=== PATIENT | female | born 1945 | race Caucasian/White ===

== ENCOUNTER 2018-04-06 00:18 | Inpatient (IN) ==
[2018-04-06] MEDS ORDERED: ONDANSETRON HCL/PF 2 MG/ML VIAL ONE (00:20)
[2018-04-06] MEDS ORDERED: ONDANSETRON HCL/PF 2 MG/ML VIAL IV ONE (00:31)
[2018-04-06 00:54] LABS: Hematocrit 35.9 % (37.0-47.0); Hemoglobin 11.2 gm/dL (12.5-16.0); Mean Cell Volume 82.3 fl (78-100); Mean Corpuscular Hemoglobin 25.7 pg (27-31); Mean Corpuscular Hgb Conc 31.2 g/dl (32-36); Mean Platelet Volume 10.4 fl (6.0-9.5); Neutrophil # 7.8 K/mm3 (1.3-6.0); Neutrophil % 83.3 % (42-75.0); Platelet Count 188 K/mm3 (150-450); Red Blood Count 4.36 M/mm3 (4.2-5.4); Red Cell Distribution Width 15.4 % (11.5-14.0); White Blood Count 9.3 K/mm3 (4.0-10.5)
--- NOTE | 2018-04-06 01:01 | ERNOTE ---
Abdominal HPI - General Chief Complaint: Abdominal Pain Time Seen by Provider: 04/06/18 00:51 Source: patient Exam Limitations: no limitations - Immun/Allergies/Home Medications Immunizatons: IMMUNIZATION HX Immunizations Up to Date Yes History of Influenza Vaccine Yes Hx Pneumococcal Vaccination No Allergies/Adverse Reactions: Allergies cephalexin [From Keflex] Allergy (Verified 04/06/18 01:24) shellfish derived Allergy (Verified 04/06/18 01:24) shrimp Allergy (Verified 04/06/18 01:24) Home Medications: HOME MEDICATIONS Metoprolol Succinate [Toprol Xl] 100 mg PO DAILY 04/06/18 [Last Taken Unknown] metFORMIN HCL [Glucophage] 1,000 mg PO BIDWM 04/06/18 [Last Taken Unknown] - History of Present Illness Narrative: Pt had onset of lower abdominal pain approx 90 min [employer]. Pt had nausea when the pain was at it's worst. Pain is constant and severe. Timing: constant Quality: moderate, severe, dullness, sharpness - at times Activities at Onset: sleep Modifying Factors - (Improves): Present: analgesics Prior Abdominal Problems: Present: similar symptoms - intermittently that have been more mild. Prior Treatment: Present: recently seen, treated by physician Review of Systems - Review of Systems Constitutional: Absent: recent illness, fever, chills EYE: Present: no symptoms reported ENT: Present: no symptoms reported Respiratory: Absent: shortness of breath, cough Cardiology: Absent: chest pain, palpitations Gastrointestinal/Abdominal: Present: See HPI, nausea, diarrhea - intermittent , abdominal pain Genitourinary: Absent: frequency, dysuria Musculoskeletal: Absent: back pain, muscle pain Neurological: Absent: headache, dizziness/light-headedness Endocrine: Absent: excessive sweating, flushing - Patient's Past Medical History Patient History - Medical: Diabetes Type 2 Patient History - Cardiac/Respiratory: CVA/Stroke, Hypertension Patient History - Cancer: No Hx of Cancer Patient History - Surgical Procedures: Cholecystectomy Patient History - Other: None - Social History Living Situations: home Smoking Status: Former smoker Alcohol Use: none Drug Use: none - Immunizations Immunizations Up to Date: Yes Hx Pneumococcal Vaccination: No History of Influenza Vaccine: Yes Physical Exam - Physical Exam General Appearance: Present: wd/wn, alert, no apparent distress Head Exam: Present: normal inspection, no evidence of injury Neck: Present: normal inspection, nontender Respiratory: Present: no respiratory distress, normal breath sounds, no accessory muscle use, lungs clear Cardiovascular/Chest: Present: regular rate, rhythm, no murmur, normal peripheral pulses Gastrointestinal/Abdominal: Present: tenderness - LLQ, RLQ, RUQ, abnormal bowel sounds - hypoactive, rebound - questionable. Back Exam: Present: normal inspection, normal range of motion Extremity Exam: Present: non-tender, no edema Neurological Exam: Present: alert, oriented, normal mood/affect, no motor/ sensory deficits Skin Exam: Present: normal color, warm/dry Lymphatic Exam: Present: no adenopathy ED Progress - Results and Orders Patient's Lab Results:: I have reviewed the patient's lab results. Results and Orders: Laboratory Tests 04/06/18 04/06/18 00:50 00:50 WBC 9.3 Hgb 11.2 L Hct 35.9 L Plt Count 188 Neutrophils % 83.3 H Sodium 137 Potassium 3.9 Chloride 103 Carbon Dioxide 25.5 Anion Gap 12.4 BUN 15 Creatinine 0.94 Random Glucose 182 H Calcium 8.9 Total Bilirubin 0.3 AST 12 ALT 12 L Alkaline Phosphatase 80 Total Protein 6.6 Albumin 3.1 L Amylase 55 Lipase 181 - Vital Signs Patient's Vital Signs:: I have reviewed the patient's vital signs. Vital Signs: Vital Signs 04/06/18 04/06/18 00:24 00:29 Temperature 37.2 C Pulse Rate 69 68 Respiratory 20 18 Rate Blood Pressure 206/106 180/76 O2 Sat by Pulse 93 93 Oximetry - EKG EKG: NSR, no ST T wave changes, other - Old [place]. EKG read: Interp. by me EKG Comments: chronic changes unchanged from 10/25/14 - X-Ray X-Ray #1 X-Ray: abdomen Interpretation: Interp. by me X-ray Comments: mild stool retention, no dilated loops of bowel. no mass or obstruction. - CT/Ultrasound CT/Ultrasound Narrative: CT abd pelvis with contrast: Small bowel obstruction mid small bowel with small perforation. Thickening in the bowel wall within the same region. No mass. - Progress/Reassessment Chief Complaint: Abdominal Pain Progress:: Improved Progress Note-Subjective: 04/06/18 01:50 Pt asked for additional pain medication as the pain was increasing again 04/06/18 02:30 Pain improved but pt's blood pressure did drop after Morphine administration. BP came back up with positioning and the beginning of a fluid bolus 04/06/18 05:[address] Ramos Carreon from [facility] about the CT scan. He reports a small bowel obstruction in the mid small bowel with a small perforation and thickening that suggests neoplastic origin such as lymphoma. Spoke with the patient and her about the findings and that this may lead to other testing and/or surgery and certainly admission for SBO at this time. Pt agrees with that plan. Spoke with Dr. De Leon and he will come and see the patient. 04/06/18 07:25 Dr. De Leon arrived around 06:05 and has made the decision to take patient directly to surgery. Orders for admit written. Departure Clinical Impression: Partial small bowel obstruction, Small bowel perforation - Departure Disposition: Still a patient Condition: Stable
[2018-04-06 01:09] LABS: Albumin * 3.1 gm/dl (3.4-5.0); Anion Gap 12.4 mmol/L (6.8-13.8); Bilirubin, Total 0.3 mg/dL (0.0-1.1); Ca. Corrected For Albumin 9.3 mg/dL (8.4-10.2); Calcium * 8.9 mg/dL (7.9-10.9); Carbon Dioxide 25.5 mmol/L (24-32.6); Potassium 3.9 mmol/L (3.4-4.6); Total Protein 6.6 gm/dL (6.2-8.2)
[2018-04-06] MEDS ORDERED: DIATRIZOATE MEGLUMINE, SODIUM 30 ML BTL PO ONE (01:44)
[2018-04-06] MEDS ORDERED: DIATRIZOATE MEGLUMINE, SODIUM 30 ML BTL ONE (01:45)
[2018-04-06] MEDS ORDERED: MORPHINE SULFATE 2 MG/ML DISP.SYRIN IV ONE (01:46)
[2018-04-06] MEDS ORDERED: MORPHINE SULFATE 2 MG/ML DISP.SYRIN ONE (01:49)
[2018-04-06] MEDS ORDERED: NORMAL SALINE 1,000 ML in NORMAL SALINE 1,000 ML IV ONE (02:03)
[2018-04-06 04:08] LABS: Urine Bilirubin Negative (NEGATIVE); Urine Blood Negative /ul (NEGATIVE); Urine Ketone Negative (NEGATIVE); Urine Nitrite Negative (NEGATIVE); Urine Protein Negative (NEGATIVE); Urine Urobilinogen Normal (NORMAL)
[2018-04-06 04:24] LABS: Urine Appearance Slightly Cloudy (CLEAR); Urine Bacteria 1+; Urine Color Yellow; Urine RBC None Seen /hpf (0-5); Urine WBC 0-5 /hpf (0-5)
[2018-04-06] MEDS ORDERED: LEVOFLOXACIN IN DEXTROSE 5 % 750 MG/150 ML BAG IV ONE (07:19)
--- NOTE | 2018-04-06 07:20 | HP ---
Chief Complaint - Chief Complaint Date of Service: 04/06/18 Time of Service: 07:07 Chief Complaint: abdominal pain History of Present Illness: Sudden onset severe abdominal pain just before bed. Intensified and she presented to ER. CT shows abnormal small intestine with possible perforation. - Patient's Past Medical History Patient History - Medical: Diabetes Type 2 Patient History - Cardiac/Respiratory: CVA/Stroke, Hypertension Patient History - Cancer: No Hx of Cancer Patient History - Surgical Procedures: Cholecystectomy Patient History - Other: None - Family History Family History:: no untoward family reactions to anesthesia, no familial bleeding tendencies - Social History Living Situations: home Smoking Status: Former smoker Alcohol Use: none Drug Use: none - Immunizations Immunizations Up to Date: Yes Hx Pneumococcal Vaccination: No History of Influenza Vaccine: Yes Review Of Systems (GEN) - Review of Systems Generalized/Overall Review: Absent: Chills, Fever EENTM: Present: No Symptoms Reported Respiratory: Present: No Symptoms Reported Cardiac: Present: No Symptoms Reported Abdominal: Present: Other - Pain continues. Diarrhea from contrast Genitourinary: Present: Nocturia - nocturia x 1. Absent: Burning, Frequency Neurological: Present: No Symptoms Reported, Other - No recent neurologic sx's-- --old CVA stable Skin: Present: Dryness Endocrine: Present: No Symptoms Reported Immunizations: IMMUNIZATION HX Immunizations Up to Date Yes History of Influenza Vaccine Yes Hx Pneumococcal Vaccination No Allergies/Adverse Reactions: Allergies Allergy/AdvReac Type Severity Reaction Status Date / Time cephalexin [From Keflex] Allergy Verified 04/06/18 01:24 shellfish derived Allergy Verified 04/06/18 01:24 shrimp Allergy Verified 04/06/18 01:24 Home Medications: HOME MEDICATIONS Metoprolol Succinate [Toprol Xl] 100 mg PO DAILY 04/06/18 [Last Taken Unknown] metFORMIN HCL [Glucophage] 1,000 mg PO BIDWM 04/06/18 [Last Taken Unknown] Exam - Exam Vital Signs: Vital Signs - Last Taken Temp 37.1 C 04/06/18 06:30 Pulse 84 04/06/18 06:30 Resp 20 04/06/18 06:30 BP 138/64 04/06/18 06:30 Pulse Ox 96 04/06/18 06:30 Constitutional: Present: Alert, Oriented x3, Cooperative, Well developed, Well nourished, Mild distress ENT Exam: Present: normal ENT inspection, hearing grossly normal Eye Exam: bilateral eye: normal inspection Neck: Present: supple, normal inspection Breasts: Present: Exam deferred Respiratory: Present: lungs clear, normal breath sounds, no respiratory distress Cardiovascular/Chest: Present: normal peripheral pulses, regular rate, rhythm Abdomen: Present: other - tympanitic, no percussion tenderness or guarding, diffusely tender /Rectal: Present: Exam deferred Extremity: Present: normal range of motion, normal inspection, no pedal edema, no calf tenderness Skin Exam: Present: skin rash Lymphatic: Present: no adenopathy Neurologic: Present: gm video II-XII nml as tested, normal cerebellar test, no motor/ sensory deficits Appearance: Present: appropriate appearance, appropriate insight, neat Eye contact: Present: cooperative, good eye contact, normal speech Thoughts: Present: normal thought pattern Diagnostic Studies: Abnormal Lab Results 04/06/18 04/06/18 04/06/18 Range/Units 00:50 00:50 04:00 Hgb 11.2 L (12.5-16.0) gm/dL Hct 35.9 L (37.0-47.0) % MCH 25.7 L (27-31) pg MCHC 31.2 L (32-36) g/dl RDW 15.4 H (11.5-14.0) % MPV 10.4 H (6.0-9.5) fl Immature Gran % (Auto) 0.70 H (0.001-0.429) % Immature Gran # (Auto) 0.07 H (0.000-0.0310) K/mm3 Neutrophils % 83.3 H (42-75.0) % Lymphocytes % 9.4 L (20-51) % Neutrophils # 7.8 H (1.3-6.0) K/mm3 Lymphocytes # 0.88 L (1.5-3.5) k/mm3 Random Glucose 182 H (70-110) mg/dL ALT 12 L (19-67) U/L Albumin 3.1 L (3.4-5.0) gm/dl Ur Leukocyte Esterase 75 H (NEGATIVE) /ul Urine Bacteria 1+ H (NONE) Laboratory Results WBC 9.3 K/mm3 (4.0-10.5) 04/06/18 00:50 RBC 4.36 M/mm3 (4.2-5.4) 04/06/18 00:50 Hgb 11.2 gm/dL (12.5-16.0) L 04/06/18 00:50 Hct 35.9 % (37.0-47.0) L 04/06/18 00:50 MCV 82.3 fl (78-100) 04/06/18 00:50 MCH 25.7 pg (27-31) L 04/06/18 00:50 MCHC 31.2 g/dl (32-36) L 04/06/18 00:50 RDW 15.4 % (11.5-14.0) H 04/06/18 00:50 Plt Count 188 K/mm3 (150-450) 04/06/18 00:50 MPV 10.4 fl (6.0-9.5) H 04/06/18 00:50 Immature Gran % (Auto) 0.70 % (0.001-0.429) H 04/06/18 00:50 Immature Gran # (Auto) 0.07 K/mm3 (0.000-0.0310) H 04/06/18 00:50 Neutrophils % 83.3 % (42-75.0) H 04/06/18 00:50 Lymphocytes % 9.4 % (20-51) L 04/06/18 00:50 Monocytes % 4.6 % (0.0-9) 04/06/18 00:50 Eosinophils % 1.8 % (0.0-3.0) 04/06/18 00:50 Basophils % 0.2 % (0.0-1.0) 04/06/18 00:50 Nucleated RBC % 0.0 k/mm3 (0-1) 04/06/18 00:50 Neutrophils # 7.8 K/mm3 (1.3-6.0) H 04/06/18 00:50 Lymphocytes # 0.88 k/mm3 (1.5-3.5) L 04/06/18 00:50 Monocytes # 0.4 k/mm3 (0.0-1.0) 04/06/18 00:50 Eosinophils # 0.2 k/mm3 (0.0-0.7) 04/06/18 00:50 Absolute Basophils 0.0 k/mm3 (0.0-0.1) 04/06/18 00:50 Sodium 137 mmol/L (132-142) 04/06/18 00:50 Plasma Sodium 138 mmol/L (130-142) 04/06/18 00:50 Potassium 3.9 mmol/L (3.4-4.6) 04/06/18 00:50 Chloride 103 mmol/L (97-106) 04/06/18 00:50 Carbon Dioxide 25.5 mmol/L (24-32.6) 04/06/18 00:50 Anion Gap 12.4 mmol/L (6.8-13.8) 04/06/18 00:50 BUN 15 mg/dL (3-23) 04/06/18 00:50 Creatinine 0.94 mg/dL (0.4-1.4) 04/06/18 00:50 Est GFR (Non-Af Amer) 62 mL/min (60-130) 04/06/18 00:50 BUN/Creatinine Ratio 16.0 (9.0-21.6) 04/06/18 00:50 Random Glucose 182 mg/dL (70-110) H 04/06/18 00:50 Calcium 8.9 mg/dL (7.9-10.9) 04/06/18 00:50 Calcium Adj for Albumin 9.3 mg/dL (8.4-10.2) 04/06/18 00:50 Total Bilirubin 0.3 mg/dL (0.0-1.1) 04/06/18 00:50 AST 12 U/L (0-48) 04/06/18 00:50 ALT 12 U/L (19-67) L 04/06/18 00:50 Alkaline Phosphatase 80 U/L (50-170) 04/06/18 00:50 Total Protein 6.6 gm/dL (6.2-8.2) 04/06/18 00:50 Albumin 3.1 gm/dl (3.4-5.0) L 04/06/18 00:50 Amylase 55 U/L (25-115) 04/06/18 00:50 Lipase 181 U/L (73-393) 04/06/18 00:50 Urine Color Yellow 04/06/18 04:00 Urine Appearance Slightly cloudy (CLEAR) 04/06/18 04:00 Urine pH 6.0 pH (5.0-7.0) 04/06/18 04:00 Ur Specific Amorita 1.010 SP.GR. (1.005-1.010) 04/06/18 04:00 Urine Protein Negative mg/dL (NEGATIVE) 04/06/18 04:00 Urine Glucose (UA) Negative mg/dL (NEGATIVE) 04/06/18 04:00 Urine Ketones Negative mg/dL (NEGATIVE) 04/06/18 04:00 Urine Blood Negative /ul (NEGATIVE) 04/06/18 04:00 Urine Nitrate Negative (NEGATIVE) 04/06/18 04:00 Urine Bilirubin Negative mg/dl (NEGATIVE) 04/06/18 04:00 Urine Urobilinogen Normal EU/dl (NORMAL) 04/06/18 04:00 Ur Leukocyte Esterase 75 /ul (NEGATIVE) H 04/06/18 04:00 Urine RBC None seen /hpf (0-5) 04/06/18 04:00 Urine WBC 0-5 /hpf (0-5) 04/06/18 04:00 Ur Epithelial Cells 0-5 /hpf (0-5) 04/06/18 04:00 Urine Bacteria 1+ (NONE) H 04/06/18 04:00 Urine Culture Comments Culture to follow 04/06/18 04:00 CT shows stretch of abnormal small bowel with ? perforation Assessment/Plan - Assessment/Plan (1) Acute infarction of small intestine, extent unspecified Assessment: She has extensive atherosclerotic disease and must suspect infarction. Explained exploratory laparotomy with bowel resection. Risks and possible hospital course explained. Questions answered and informed consent for exploratory laparotomy obtained. Chlorhexidine wiped, SCD's. IV levaquin. Have discussed epidural with anesthesia. She will require acute care status. Problem: Acute
[2018-04-06] MEDS ORDERED: RINGER'S SOLUTION,LACTATED 1,000 ML IV ONE ×3 (07:40→10:02)
[2018-04-06] MEDS ORDERED: BACITRACIN 50,000 UNITS VIAL IR ONE (09:04)
[2018-04-06] MEDS ORDERED: ONDANSETRON HCL/PF 2 MG/ML VIAL IV PRN (09:31)
[2018-04-06] MEDS ORDERED: diphenhydrAMINE HCL 50 MG/ML VIAL IV PRN (09:31)
[2018-04-06] MEDS ORDERED: PROMETHAZINE HCL 12.5 MG in DEXTROSE 5 % IN WATER 50 ML IV PRN ×2 (09:31)
[2018-04-06] MEDS ORDERED: MUPIROCIN 22 APPL TUBE TP ONE (09:58)
[2018-04-06] MEDS: RINGER'S SOLUTION,LACTATED 1,000 ML IV PRN ×2 (11:14→21:09)
--- NOTE | 2018-04-06 12:08 | OR ---
Anesthesia Procedure Note - Anesthesia Procedure Note Narrative: Vital Signs - Last Taken Temp 37.2 C 04/06/18 11:41 Pulse 95 04/06/18 11:41 Resp 14 04/06/18 11:41 BP 153/76 04/06/18 11:41 Pulse Ox 99 04/06/18 11:41 O2 Oxygen Delivery Method Nasal Cannula 04/06/18 12:05 ANESTHESIA PROCEDURE NOTE Date of procedure: 04/06/2018. Time of procedure: . Performed by: Preston Montgomery CRNA Safemaker: None . Preprocedure diagnosis: Perforation of small bowel. Need for postoperative analgesia.. Post procedure diagnosis: Same. Procedure: Thoracic epidural catheter placement Indications: Postoperative analgesia. Findings: Patient brought operating room #2 and placed in a sitting position on the side of the OR table. The patient was sedated. The patient's back was prepped with DuraPrep. Epidural space was identified at T12-L1 using loss-of- resistance technique. 7.5 mg of 0.5% Marcaine preservative-free was given intrathecally with a 27-gauge spinal needle. Epidural catheter was in place without difficulty. 5 mL of 1.5% lidocaine with epinephrine 1:200,000 was injected through the epidural catheter to check for catheter placement. No adverse reaction was seen. Catheter was taped in place. EBL: Minimal. Fluids: N/A. Specimen: N/A. Post procedure condition: The patient tolerated the procedure well. No complications were noted. Thank you for this consultation Preston Montgomery CRNA
[2018-04-06] MEDS ORDERED: BENZOCAINE/MENTHOL 16 EACH BOX MM PRN (16:14)
--- NOTE | 2018-04-06 18:32 | OR ---
Operative Report - Dictated Report Narrative: OPERATIVE REPORT DATE OF OPERATION: 04/06/2018 PREOPERATIVE DIAGNOSIS: Small bowel perforation POSTOPERATIVE DIAGNOSIS: Abnormal small intestine with perforation (pathology pending) OPERATION: Exploratory laparotomy with small bowel resection SURGEON: Tessie De Leon MD ANESTHESIA: General endotracheal/epidural Preston Montgomery CRNA INDICATIONS FOR PROCEDURE: The patient is a 73-year-old female who presented to the emergency room after very sudden onset severe mid abdominal pain. Although she has minimal physical findings, CT scan of the abdomen and pelvis reveals a section of abnormal small bowel with possible perforation. There is extensive atherosclerotic disease and small bowel ischemia is a possibility. FINDINGS: Apparent perforation of the small bowel (pathology pending) NARRATIVE OF PROCEDURE: The patient was identified preoperatively and prior to the administration of anesthetic a multidisciplinary timeout was observed. The patient was placed supine, SCDs were applied and 750 mg of intravenous Levaquin administered. After establishment of a satisfactory epidural catheter general endotracheal anesthetic was administered. A Cantu catheter was placed and a nasogastric tube was passed. The patient's abdomen was prepped with Betadine solution and a generous operating field outlined with 4 sterile towels. The remainder the patient was covered with a sterile disposable drape. A midline skin incision was made skirting to the right of the umbilicus. Dissection was carried through subcutaneous tissue with electrocautery until the fascia of the linea alba was identified. This was incised. The peritoneum was elevated and incised to allow entry into the abdomen under direct vision. The small bowel immediately visible had exudate on the serosa and there was a moderate amount of cloudy green peritoneal fluid which was sampled and submitted for culture. Manual and visual exploration of the abdomen was performed. The nasogastric tube was palpated to be in good position in the stomach. There was dilated proximal small bowel for the proximal one third with then an area of adherent loops which were delivered for inspection. There appeared to be an interloop perforation with a possible small bowel diverticulum containing solid material. The distal small bowel was collapsed and appeared normal when traced distally to the ileocecal valve. The abnormal stretch of intestine was carefully inspected. After separation of the adhesions the area of pathology could be isolated. Points were chosen proximal and distal to this segment which was then crossclamped and divided with 2 applications of the JORGE stapling device. The transected ends were treated with Betadine. The intervening wedge of mesentery was then serially crossclamped and divided and the pedicles secured with 2-0 Vicryl ties. The specimen was passed intact to the back table and submitted to pathology. The transected ends of the bowel were then placed in a side to side fashion and secured with a serosal suture of 3-0 silk. The antimesenteric ends of the staple lines were opened and a functioning [id number]-dl-[id number] anastomosis performed with a JORGE stapling device. The interior of the anastomosis appeared hemostatic and of good caliber. The common enterotomy was then closed with a TA 60 stapling device. The anastomosis appeared to be of good caliber and gas and liquid tight allowing free flow of small bowel content. The staple lines were oversewn with several interrupted serosal sutures of 3-0 silk. The mesenteric defect was approximated with a running suture of 2-0 Vicryl. The abdomen was then reinspected and no additional pathology identified. The abdomen was then irrigated with warm bacitracin containing saline and suction clean. Small bowel loops were placed in an anatomic fashion. The greater omentum was then placed in an anatomic fashion in front of the small intestine, and after receiving a correct sponge needle and instrument count attention was turned to closing the abdomen. The peritoneum was approximated with a running suture of 2-0 Vicryl. The fascia was then approximated with interrupted sutures of antibiotic containing # 1 Vicryl. Subcutaneous tissues were irrigated and hemostasis appeared complete. A small round Fabio-Shrestha drain was placed in the subcutaneous tissue and brought out through separate stab wound below the incision. It was secured to the skin with a single suture of 3-0 silk. Subcutaneous space was obliterated with several interrupted sutures of 3-0 chromic. The skin was approximated with blaine. The Fabio-Shrestha drain was placed to its own suction container. The operative site was washed and dried. A dressing of Bactroban ointment and folded 4 x 4 was applied. The operative procedure was terminated at this point. The patient tolerated the anesthetic and procedure well without complication. There was no measurable blood loss. She received 2100 mL of IV fluid and had 400 mL of urine output. She was transferred to the recovery room awake, extubated, and in stable condition Reviewed and electronically signed
[2018-04-06] MEDS: KETOROLAC TROMETHAMINE 15 MG/ML VIAL IV PRN (19:32)
[2018-04-07] MEDS: BUPIVACAINE HCL/0.9 % NACL/PF 250 ML EP PRN (05:10)
[2018-04-07] MEDS: KETOROLAC TROMETHAMINE 15 MG/ML VIAL IV PRN (05:15)
[2018-04-07 06:42] LABS: Anion Gap 8.5 mmol/L (6.8-13.8); BUN/Creatinine Ratio 10.2 (9.0-21.6); Carbon Dioxide 28.5 mmol/L (24-32.6); Estimated Creat Clear 54.5
[2018-04-07] MEDS ORDERED: LEVOFLOXACIN IN DEXTROSE 5 % 750 MG/150 ML BAG IV SCH (07:35)
[2018-04-07] MEDS: METOPROLOL SUCCINATE 100MG PO SCH (08:22)
[2018-04-07] MEDS: LEVOFLOXACIN IN DEXTROSE 5 % 750 MG/150 ML BAG IV SCH (08:59)
[2018-04-07] MEDS ORDERED: ONDANSETRON 4 MG TAB.RAPDIS PO PRN (09:43)
[2018-04-07] MEDS: RINGER'S SOLUTION,LACTATED 1,000 ML IV PRN ×2 (10:13→22:08)
--- NOTE | 2018-04-07 18:29 | PN ---
Dictated Progress Note - Date and Time Seen: Date: 04/07/18 Time: 18:15 - Progress Note Narrative: Vital Signs - Last Taken Temp 37.6 C H 04/07/18 14:33 Pulse 85 04/07/18 14:33 Resp 18 04/07/18 14:33 BP 156/76 04/07/18 14:33 Pulse Ox 97 04/07/18 14:33 Abnormal/Pending Laboratory Last 24 HRS 04/07/18 06:25 Random Glucose 141 H POD #1 Small bowel resection for perforation. Pathology revealed a diverticulum with enterolith, chronic ulcer with perforation. Vital signs have been normal. Good urine output. Pain controlled with HAIR CUTTER. Has tolerated NG clamping, no residual. Not hungry. Active bowel sounds but no flattus. Abdominal dressing dry, minimal ROSA output. BMP normal. Will D/C NG, encourage OOB. Will plan to D/C [place] in AM.
[2018-04-07] MEDS ORDERED: BISACODYL 5 MG TABLET.DR PO ONE (18:30)
[2018-04-07] MEDS ORDERED: METOPROLOL SUCCINATE 100 MG TABLET.SA PO ONE (23:00)
[2018-04-08] MEDS: METOPROLOL SUCCINATE 100MG PO SCH (08:10)
[2018-04-08] MEDS: LEVOFLOXACIN IN DEXTROSE 5 % 750 MG/150 ML BAG IV SCH (08:10)
[2018-04-08] MEDS ORDERED: BISACODYL 5 MG TABLET.DR PO ONE (10:15)
[2018-04-08] MEDS: BUPIVACAINE HCL/0.9 % NACL/PF 250 ML EP PRN (11:16)
[2018-04-08] MEDS: RINGER'S SOLUTION,LACTATED 1,000 ML IV PRN ×2 (14:57→22:25)
--- NOTE | 2018-04-08 16:50 | PN ---
Dictated Progress Note - Date and Time Seen: Date: 04/08/18 Time: 16:00 - Progress Note Narrative: Vital Signs - Last Taken Temp 36.3 C L 04/08/18 14:51 Pulse 82 04/08/18 14:51 Resp 18 04/08/18 14:51 BP 146/63 04/08/18 14:51 Pulse Ox 95 04/08/18 14:51 Culture 04/06/18 09:00 Miscellaneous Culture - Preliminary Peritoneal Fluid No Growth POD#2 Exploratory laparotomy with small bowel resection for perforation from ulcer associated with diverticulum Was very weak when up earlier--no focal findings. Passing gas, poor appetite. Dressing dry, minimal ROSA output. Good pain control C&S from urine show sensitive to Levaquin, no growth peritoneal fluid ROSA removed Will continue IVF's, encourage what po she feels like OOB with assist
[2018-04-09] MEDS: RINGER'S SOLUTION,LACTATED 1,000 ML IV PRN ×2 (05:10→13:26)
[2018-04-09] MEDS ORDERED: oxyCODONE HCL/ACETAMINOPHEN 1 TAB TABLET PO PRN (08:11)
[2018-04-09] MEDS: METOPROLOL SUCCINATE 100MG PO SCH (08:16)
[2018-04-09] MEDS: LEVOFLOXACIN IN DEXTROSE 5 % 750 MG/150 ML BAG IV SCH (09:16)
--- NOTE | 2018-04-09 18:09 | PN ---
Dictated Progress Note - Date and Time Seen: Date: 04/09/18 Time: 18:06 - Progress Note Narrative: Vital Signs - Last Taken Temp 36.5 C 04/09/18 11:59 Pulse 72 04/09/18 11:59 Resp 18 04/09/18 11:59 BP 117/72 04/09/18 11:59 Pulse Ox 93 04/09/18 11:59 Culture 04/06/18 09:00 Miscellaneous Culture - Final Peritoneal Fluid No Growth POD#3 Small bowel resection for perforation Marked improvement over course of today. Stooling and good U/O and taking po better. Denies pain. Has ambulated Will saline lock IV (can keep same site) Shower/change dressing Advance diet in AM
[2018-04-10] MEDS: METOPROLOL SUCCINATE 100MG PO SCH (08:19)
--- NOTE | 2018-04-10 17:16 | PN ---
Dictated Progress Note - Date and Time Seen: Date: 04/10/18 Time: 17:14 - Progress Note Narrative: Vital Signs - Last Taken Temp 36.8 C 04/10/18 15:24 Pulse 82 04/10/18 15:24 Resp 16 04/10/18 15:24 BP 158/72 04/10/18 15:24 Pulse Ox 97 04/10/18 15:24 POD#4 Small bowel resection for perforated ulcer associated with a diveticulum Continues to improve. Has tolerated advanced diet and stools firming up/less frequent Still needs assist to get up and with ambulation. Dressing dry Will encourage ambulation with eye toward D/C tomorrow
[2018-04-11] MEDS: METOPROLOL SUCCINATE 100MG PO SCH (09:54)
--- NOTE | 2018-04-11 17:03 | DS ---
(1) Acute infarction of small intestine, extent unspecified Problem: Ruled-out Description of Stay: She underwent exploratory laparotomy and was found to have small bowel perforation from an ulcer associated with a small bowel diverticulum with enterolith. She had an epidural catheter which controlled her pain. An NG tube was placed at surgery. A folety catheter was placed and removed timely. She was treated with IV Levoquin because of cephalosporin allergy. An ER urine culture did grow enterococcus sensitive to Levaquin. Peritonneal culture was no growth. Post-operatively she did well with return of bowel function on the 3rd day. She tolerated advanced diet, her incision appeared to be healing well and she was able to ambulate independently. Her BP did remain elevated, however will be observed and checked at 1st postop visit. She was discharged home with instructions and phone #'s for questions or concerns. OTC pain med if required. Continue home meds. Will be seen in office 04/16/18. Procedures Performed: see notes below - exploratory laparotomy with small bowel resection Discharge Location: Home Disposition: Home self-care Condition: Good Discharge Activity: Activity as tolerated, No Lifting Discharge Diet: General/regular food Referrals: Lima Kelly MD [Primary Care Provider] - Additional Patient Instructions (free text): patient to call office for appointment on 04/16/18 Complete Home Medications List: Complete Home Medication List: Metoprolol Succinate [Toprol Xl] 100 mg PO DAILY 04/06/18 metFORMIN HCL [Glucophage] 1,000 mg PO BIDWM 04/06/18
[2018-04-11 17:08] VITALS: BP 186/75
== END 2018-04-11 17:45 | disposition home or self-care (01) | DRG 330 ==
LOC: ER 00:18 → MS 07:17
PROVIDERS: ADMIT Surgery; ATTEND Surgery
DX: I10 Essential (primary) hypertension; Z88.3 Allergy status to other anti-infective agents; Z91.013 Allergy to seafood; E11.9 Type 2 diabetes mellitus without complications; Z86.73 Personal history of transient ischemic attack (TIA), and cerebral infarction without residual deficits; Z87.891 Personal history of nicotine dependence; K57.00 Diverticulitis of small intestine with perforation and abscess without bleeding
CPT/HCPCS: 36415; 74019; 74020; 74177; 80048; 80053; 81001; 82150; 83690; 85025; 87070; 87086; 88307; 93005; 96361; 96374; 96375; 99285; J2405

== ENCOUNTER 2019-02-15 22:20 | Observation (INO) ==
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
[2019-02-15] MEDS ORDERED: ONDANSETRON HCL/PF 2 MG/ML VIAL IV ONE (23:44)
[2019-02-15] MEDS ORDERED: MORPHINE SULFATE 2 MG/ML DISP.SYRIN IV ONE (23:44)
[2019-02-16] MEDS ORDERED: NALBUPHINE HCL 20 MG/ML AMPUL IV ONE (00:27)
--- NOTE | 2019-02-16 01:23 | ANES ---
Anesthesia Pre Procedure Eval Vitals/Labs: Last Vital Signs Temp 37.2 C 02/15/19 22:20 Pulse 82 02/15/19 23:30 Resp 17 02/15/19 23:30 BP 180/78 H 02/15/19 23:30 Pulse Ox 95 02/15/19 23:30 HOME MEDICATIONS metoprolol succinate ER 100 mg tablet,extended release 24 hr 100 mg PO DAILY #30 tab 06/30/18 [Last Taken Unknown] metFORMIN HCL [Glucophage] 500 mg PO BIDWM 10/29/18 [Last Taken Unknown] Allergies/Adverse Reactions: Allergies Allergy/AdvReac Type Severity Reaction Status Date / Time cephalexin [From Keflex] Allergy RASH Verified 02/15/19 22:30 morphine Allergy Verified 02/16/19 00:04 shellfish derived Allergy anaphylactic Verified 02/15/19 22:30 shock shrimp Allergy anaphylactic Verified 02/15/19 22:30 shock - Planned Procedure Planned Procedure: LT ANKLE PAIN RT KNEE PAIN FROM FALL Medication List Reviewed:: Yes Allergies Verified: Yes Medical History (Last Reviewed 02/16/19 @ 01:23 by Reinaldo Montgomery CRNA) Diabetes type 2, controlled Hypertension Psoriasis Onset Date: 2005 Right ankle injury Onset Date: 10/2018 lateral malleolus fracture Rosacea Onset Date: 1999 Shingles Onset Date: 10/04/18 Stroke x2 Surgical History (Last Reviewed 02/16/19 @ 01:23 by Reinaldo Montgomery CRNA) H/O knee surgery Onset Date: 04/05/04 right- [place] H/O resection of small bowel History of cataract surgery History of cholecystectomy Family History (Last Reviewed 02/16/19 @ 01:23 by Reinaldo Montgomery CRNA) Brother , age 70 Lung cancer Cancer skin cancer w/mets to lung. Alzheimers disease Mother , age 59 Lung cancer Liver cancer Hypertension Father Alzheimers disease Sister Rheumatoid arthritis Myocardial infarction w/ 2 stents Grandfather Heart disease Myocardial infarction Grandmother CVA (cerebral vascular accident) Heart disease Child Myocardial infarction - Family Anesthesia History Family History:: no untoward family reactions to anesthesia - Airway/Neck/Teeth Teeth Condition: intact Neck Exam: full range of motion Mallampatti Score: 2 Thyromental (T-M) distance: > 6 cm Mandibulo Hyoid distance: > 3 cm - Respiratory Respiratory Physical: lungs clear Smoking Status: Never smoker Sleep Apnea currently treated: No Sleep Apnea by current assessment: No - Cardiovascular Cardiac History: CVA/stroke, hypertension Tolerate Activity: Fair Heart Sounds: S1 & S2, Regular - Anesthesia Assessment and Plan ASA Class: PS, III, E Anesthesia Type Plan: MAC Planned difficult intubation/equipment available: No
--- NOTE | 2019-02-16 01:24 | ANES ---
Post Anesthesia Discharge - Transfer of Care Transfer of Care handoff given to nurse: Yes - Discharge to ASU Discharge to ASU-no complications/pt stable: Yes - Anesthesia Post Op Note Anesthesia Post Op Note: Care transferred to MOTHERCRAFT NURSE
--- NOTE | 2019-02-16 01:24 | ANES ---
Post Anesthesia Assessment - Vital Signs Vitals: Last Vital Signs Temp 37.2 C 02/15/19 22:20 Pulse 82 02/15/19 23:30 Resp 17 02/15/19 23:30 BP 180/78 H 02/15/19 23:30 Pulse Ox 95 02/15/19 23:30 Airway Patency: Normal - Mental Status Level Of Consciousness: Awake - Pain Level Pain Score: 4 - N/V Assessment Nausea/Vomiting Presence: None Dehydration:: No
[2019-02-16] MEDS ORDERED: HYDROmorphone HCL 1 MG/ML DISP.SYRIN IV ONE (02:05)
[2019-02-16] MEDS ORDERED: HYDROmorphone HCL 1 MG/ML DISP.SYRIN IV PRN ×2 (03:31→04:44)
--- NOTE | 2019-02-16 08:26 | CONS ---
[facility] - General Date of Service: 02/16/19 Narrative: Mrs. Orosco is a 74-year-old female who fell at home resulting in injury to her left ankle. She is unable to weight-bear and came into the emergency department at which time she is found to have a bimalleolar ankle fracture with subluxation. She was sedated and had this reduced and splinted. She was admitted for operative treatment as she was unable to mobilize safely in order to be discharged from the emergency department. She denies any other areas of pain. She denies any prior ankle injury. Source: patient Exam Limitations: no limitations - History of Present Illness Timing/Duration: 24 hours Severity: moderate Modifying Factors - (Worsens): Reports: movement Modifying Factors - (Improves): Reports: immobilization Associated Symptoms: denies symptoms Allergies/Adverse Reactions: Allergies cephalexin [From Keflex] Allergy (Verified 02/15/19 22:30) RASH morphine Allergy (Verified 02/16/19 00:04) shellfish derived Allergy (Verified 02/15/19 22:30) anaphylactic shock shrimp Allergy (Verified 02/15/19 22:30) anaphylactic shock Home Medications: Home Medications Medication Instructions Recorded Last Taken metoprolol succinate ER 100 mg 100 mg PO DAILY #30 tab 06/30/18 Unknown tablet,extended release 24 hr metFORMIN HCL [Glucophage] 500 mg PO BIDWM 10/29/18 Unknown Procedures Excision of semilunar cartilage of knee (04/05/04) Other repair of knee (04/05/04) Review of Systems - Review of Systems Generalized/Overall Review: Present: No Symptoms Reported Physical Examination - Exam Narrative: Left lower extremity: In a well fitting splint. Brisk cap refill to the toes. Sensations intact light touch. No bleeding or signs of drainage. Skin is intact. She is able to move her toes Vital Signs: Vital Signs - Last Taken Temp 36.9 C 02/16/19 06:44 Pulse 88 02/16/19 06:44 Resp 18 02/16/19 06:44 BP 151/69 H 02/16/19 06:44 Pulse Ox 95 02/16/19 06:44 O2 Oxygen Delivery Method Room Air Constitutional: Present: Alert, Oriented x3 - Results and Findings: Narrative: Left ankle films: Bimalleolar fracture with subluxation laterally pre-reduction. Postreduction well aligned and splint without signs of apparent posterior malleolus fracture - Assessments/Findings (1) Bimalleolar ankle fracture Diagnosis(s): Plan is to proceed with open reduction internal fixation. The risks and recovery were discussed with the patient. She will receive IV clindamycin secondary to her cephalexin allergy. We discussed that if she is doing well she can potentially go home today otherwise ideally by tomorrow. Problem: Acute Qualifiers: Encounter type: initial encounter Fracture type: closed Laterality: left Qualified Code(s): S82.842A - Displaced bimalleolar fracture of left lower leg, initial encounter for closed fracture
[2019-02-16] MEDS: HYDROmorphone HCL 1 MG/ML DISP.SYRIN IV PRN ×3 (09:18→14:51)
[2019-02-16] MEDS: RINGER'S SOLUTION,LACTATED 1,000 ML IV PRN ×3 (09:29→15:48)
--- NOTE | 2019-02-16 10:59 | HP ---
Chief Complaint - Chief Complaint Date of Service: 02/16/19 Time of Service: 09:53 Chief Complaint: Left ankle pain History of Present Illness: 74-year-old female with a past medical history of diabetes mellitus type 2, hypertension, psoriasis, shingles, stroke presents status post fall. She states that last night she was walking back into her bedroom when her right knee gave out. She fell to the floor. Her daughter saw her fall and asked her if she could stand up, when she tried to stand up she had a lot of pain in the left foot and was unable to bear weight. Daughter called 911 and she was brought to the emergency room. In the ER she was found to have a fracture of her left ankle. Medical History (Last Reviewed 02/16/19 @ 03:05 by Giselle Bennett RN) Diabetes type 2, controlled Hypertension Psoriasis Onset Date: 2005 Right ankle injury Onset Date: 10/2018 lateral malleolus fracture Rosacea Onset Date: 1999 Shingles Onset Date: 10/04/18 Stroke x2 Surgical History: Surgical History (Last Reviewed 02/16/19 @ 03:05 by Giselle Bennett RN) H/O knee surgery Onset Date: 04/05/04 right- [place] H/O resection of small bowel History of cataract surgery History of cholecystectomy Family History: Family History (Last Reviewed 02/16/19 @ 03:05 by Giselle Bennett RN) Brother , age 70 Lung cancer Cancer skin cancer w/mets to lung. Alzheimers disease Mother , age 59 Lung cancer Liver cancer Hypertension Father Alzheimers disease Sister Rheumatoid arthritis Myocardial infarction w/ 2 stents Grandfather Heart disease Myocardial infarction Grandmother CVA (cerebral vascular accident) Heart disease Child Myocardial infarction Social History: Patient Lives/Resources With Spouse Utilized Preferred Language Egyptian Do you have any shinto or No cultural preference? Smoking Status Former smoker Have you smoked in the past 12 No months Abuse History No History of abuse Psych History No pertinent hx Alcohol Use none Drug Use none (Last Updated 11/26/18 @ 09:57 by Hair Lindquist MD) No Social History Section defined Review Of Systems (GEN) - Review of Systems Generalized/Overall Review: Absent: Chills, Fever Respiratory: Absent: Shortness of Breath Cardiac: Absent: Chest Pain Abdominal: Absent: Abdominal Pain Musculoskeletal: Present: Joint Pain - Left ankle Misc: All systems neg except as marked Immunizations: IMMUNIZATION HX Immunizations Up to Date Yes History of Influenza Vaccine Yes Hx Pneumococcal Vaccination No Allergies/Adverse Reactions: Allergies Allergy/AdvReac Type Severity Reaction Status Date / Time cephalexin [From Keflex] Allergy RASH Verified 02/15/19 22:30 morphine Allergy Verified 02/16/19 00:04 shellfish derived Allergy anaphylactic Verified 02/15/19 22:30 shock shrimp Allergy anaphylactic Verified 02/15/19 22:30 shock Home Medications: HOME MEDICATIONS metoprolol succinate ER 100 mg tablet,extended release 24 hr 100 mg PO DAILY #30 tab 06/30/18 [Last Taken Unknown] metFORMIN HCL [Glucophage] 500 mg PO BIDWM 10/29/18 [Last Taken Unknown] Exam - Exam Vital Signs: Vital Signs - Last Taken Temp 36.4 C 02/16/19 10:10 Pulse 91 02/16/19 10:10 Resp 18 02/16/19 10:10 BP 151/64 H 02/16/19 10:10 Pulse Ox 98 02/16/19 10:10 Constitutional: Present: Alert, Oriented x3, Cooperative, Well developed, Well nourished, No distress, Elderly ENT Exam: Present: hearing grossly normal, moist mucous membranes Eye Exam: bilateral eye: normal inspection Neck: Present: non-tender. Absent: lymphadenopathy (R), lymphadenopathy (L) Back Exam: Present: normal inspection Respiratory: Present: lungs clear, normal breath sounds, no respiratory distress, no accessory muscle use, No wheezing. Absent: crackles, rhonchi Cardiovascular/Chest: Present: normal peripheral pulses, regular rate, rhythm, systolic murmur Peripheral Pulses: dorsalis-pedis (R): 2+ Abdomen: Present: Normal bowel sounds, soft, nontender Extremity: Present: lower extremity edema - Right leg, other - Left leg Henry bandage in place. Skin Exam: Present: normal color, warm/dry - Left leg: Henry wrap in place. Neurologic: Present: alert, normal mood/affect Appearance: Present: appropriate appearance Eye contact: Present: cooperative, good eye contact Thoughts: Present: normal thought pattern, normal mood /affect Assessment/Plan - Narrative Narrative: 74-year-old female with a past medical history of diabetes mellitus type 2, hypertension, psoriasis, shingles, stroke presents status post fall. In the ER she was found to have a fracture of her left ankle. She will go for ORIF today with Dr. Mandujano. - Assessment/Plan (1) Bimalleolar ankle fracture Assessment: She is going for an ORIF this afternoon with Dr. Mandujano. Continue with IV pain management. Continue with antibiotics per Dr. Mandujano. Problem: Acute Qualifiers: Encounter type: initial encounter Fracture type: closed Laterality: left Qualified Code(s): S82.842A - Displaced bimalleolar fracture of left lower leg, initial encounter for closed fracture (2) Hypertension Assessment: Stable resume home medications. Problem: Chronic Qualifiers: Hypertension type: essential hypertension Qualified Code(s): I10 - Essential (primary) hypertension (3) Diabetes mellitus type 2 in nonobese Assessment: Hold metformin for now until after procedure. Problem: Chronic
[2019-02-16] MEDS: METOPROLOL SUCCINATE 100 MG TABLET.SA PO SCH (11:25)
--- NOTE | 2019-02-16 12:43 | ANES ---
Anesthesia Pre Procedure Eval Vitals/Labs: Last Vital Signs Temp 36.4 C 02/16/19 10:10 Pulse 91 02/16/19 11:25 Resp 18 02/16/19 10:10 BP 151/64 H 02/16/19 11:25 Pulse Ox 98 02/16/19 10:10 HOME MEDICATIONS metoprolol succinate ER 100 mg tablet,extended release 24 hr 100 mg PO DAILY #30 tab 06/30/18 [Last Taken Unknown] metFORMIN HCL [Glucophage] 500 mg PO BIDWM 10/29/18 [Last Taken Unknown] Allergies/Adverse Reactions: Allergies Allergy/AdvReac Type Severity Reaction Status Date / Time cephalexin [From Keflex] Allergy RASH Verified 02/15/19 22:30 morphine Allergy Verified 02/16/19 00:04 shellfish derived Allergy anaphylactic Verified 02/15/19 22:30 shock shrimp Allergy anaphylactic Verified 02/15/19 22:30 shock - Planned Procedure Planned Procedure: lt ankle bimalleolar fracture Medication List Reviewed:: Yes Allergies Verified: Yes Medical History (Last Reviewed 02/16/19 @ 12:38 by Carlos Borrero CRNA) Diabetes type 2, controlled Hypertension Psoriasis Onset Date: 2005 Right ankle injury Onset Date: 10/2018 lateral malleolus fracture Rosacea Onset Date: 1999 Shingles Onset Date: 10/04/18 Stroke x2 Surgical History (Last Reviewed 02/16/19 @ 12:38 by Carlos Borrero CRNA) H/O knee surgery Onset Date: 04/05/04 right- [place] H/O resection of small bowel History of cataract surgery History of cholecystectomy Family History (Last Reviewed 02/16/19 @ 12:38 by Carlos Borrero CRNA) Brother , age 70 Lung cancer Cancer skin cancer w/mets to lung. Alzheimers disease Mother , age 59 Lung cancer Liver cancer Hypertension Father Alzheimers disease Sister Rheumatoid arthritis Myocardial infarction w/ 2 stents Grandfather Heart disease Myocardial infarction Grandmother CVA (cerebral vascular accident) Heart disease Child Myocardial infarction - Family Anesthesia History Family History:: no untoward family reactions to anesthesia, no familial bleeding tendencies, no family history of clotting disorders, no family history of premature - Airway/Neck/Teeth Within Normal Limits:: Yes Teeth Condition: intact Denture Type: Partial upper Neck Exam: full range of motion Mallampatti Score: 1 Thyromental (T-M) distance: > 6 cm Mandibulo Hyoid distance: > 3 cm - Respiratory Respiratory Physical: lungs clear Smoking Status: Former smoker - quit 97 Sleep Apnea currently treated: No Sleep Apnea by current assessment: No - Cardiovascular Cardiac History: CVA/stroke, hypertension Tolerate Activity: Fair Heart Sounds: S1 & S2, Regular, Murmur - Anesthesia Assessment and Plan ASA Class: PS, III - Diabetes, cva, shingles in October with residual leg weakness Anesthesia Type Plan: General LMA, Block - for post op pain relief
--- NOTE | 2019-02-16 16:54 | ANES ---
Anesthesia Procedure Note Procedure Note: ANESTHESIA PROCEDURE NOTE Date of Procedure: 02/16/2019. Time of procedure: 1545. Performed by: Carlos Kaplan CRNA Facility Administrator: None. Preprocedure diagnosis: Left bimalleolar ankle fracture. Post procedure diagnosis: Same. Procedure: Left ultrasound guided popliteal/sciatic nerve block for post operative analgesia. Indications: The patient is a 74 -year-old female requesting left ultrasound guided popliteal/sciatic nerve block for postoperative analgesia related to left ORIF bimalleolar ankle fracture . Findings: See below. Details of the procedure: The patient was placed in the right lateral decubitus position. The tissue over the intended target site was cleansed with ChloraPrep. 1 ml Lidocaine 1 % was infiltrated to the skin and subcutaneous tissue. Under sterile technique and ultrasound guidance a 21-gauge block needle was inserted superior to the cepholateral quadrant of the left leg. The needle was passed through the biceps femoris muscle to the tibial/sciatic nerve. 30 mL's of 0.5% bupivacaine plus epinephrine 1:200,000 was injected after negative aspiration for blood. Needle tip and spread of local anesthetic surrounding the tibial/sciatic nerve was observed throughout the injection with real time ultrasound visualization. The needle was removed intact. No complications were noted. The images were retained in the Hospital medical database . EBL: Minimal. Fluids: N/A. Specimen: N/A. Post procedure condition: The patient tolerated the procedure well. No complications were noted. Thank you for this consultation. Carlos Kaplan CRNA
[2019-02-16] MEDS ORDERED: ACETAMINOPHEN 500 MG TABLET PO PRN (17:33)
[2019-02-16] MEDS ORDERED: diphenhydrAMINE HCL 50 MG/ML VIAL IV PRN (17:33)
[2019-02-16] MEDS ORDERED: MAG HYDROX/ALUMINUM HYD/SIMETH 30 ML UDC PO PRN (17:33)
--- NOTE | 2019-02-16 17:43 | OR ---
Operative Report - Dictated Report Narrative: Date: 02/16/2019 Surgeon: Jas Mandujano M.D. [employer] [facility] Manager: Joon Josue PA-C (assisted with prepping, draping, manipulation, retraction, irrigation, debridement, radiographs, placement of instruments, closure of wound, application of dressings all of which cannot be performed by the available surgical crew) Anesthesia: General plus regional Preoperative diagnosis: Closed left bimalleolar ankle fracture. Postoperative diagnosis: Closed left trimalleolar ankle fracture. Procedure: 1. Open reduction internal fixation left medial and lateral malleolus fracture. 2. Intra-operative interpretation of radiographs. 3. Closed treatment of left posterior malleolus fracture Estimated blood loss: None Tourniquet time: 5 Minutes at 300 millimeters mercury Retained implants: [employer] 3.5 mm VLP distal fibula plate with associated screws on the fibula, 4.0 cannulated partially threaded cancellus screws in the medial malleolus x 52mm x2 Specimens: None Complications: None Indications: Mrs. Orosco is a 74-year-old female who fell at home resulting in a injury to the right ankle. They were seen in the emergency department with images obtained revealing the above injury. They were seen on the [facility] floor where the skin was examined and felt to be amenable to surgical treatment. The risks, benefits, and treatment options were discussed with the patient and the plan for open reduction internal fixation was discussed. Risks were reviewed including , blood clots, nerve/tendon/blood vessel injury, malunion, nonunion, failure of implants, prominent implants, arthrosis, persistent pain, need for additional procedures. Procedure: After a timeout, antibiotics consisting of clindamycin was administered. Beanbag was utilized in order bump the operative leg and a well-padded tourniquet was applied to the operative thigh. The splint was removed and the leg was pre-scrubbed with chlorhexidine then prepped and draped in a standard sterile fashion. The extremity was exsanguinated and tourniquet was inflated. It was noted that it appeared to be more of a venous tourniquet and it was deflated without any excessive bleeding. Initial attention was turned to the medial malleolus. A curvilinear incision was made over the anterior medial aspect of the distal tibia. Care was taken to protect the saphenous vein and nerve. The medial malleolus fracture was identified and the soft tissues elevated off the bony edges. Hematoma was evacuated from the fracture site. The joint was visualized and there appeared to be no chondral damage. The joint was thoroughly irrigated. Preliminary fixation with a reduction clamp was placed across the fracture of the medial malleolus. Attention was then turned to the lateral malleolus. A posterior lateral incision was made over the fibular fracture. Subcutaneous dissection was carried down to the fibula protecting the superficial peroneal nerve. The fracture was identified and was noted to be comminuted at the level of the plafond with a lateral cortical fragment. After preparing the bony edges and reducing the fracture, neutralizing plate was utilized in order to stabilize the fracture. Mini C-arm was used in order to confirm the appropriate placement and length of the implants. Care was taken to avoid placing screws into the ankle joint and the syndesmosis. Once it was felt that the fibula was adequately stabilized we returned our attention to the medial malleolus. Two parallel guidewires were placed from the tip of the medial malleolus paralleling the anterior distal tibia within the confines of the distal tibial bone. These were measured, drilled, and sequentially tightened using 2 4.0mm partially-threaded cancellus screws. This gave good stabilizations the medial malleolus fracture. The ankle was then placed through a range of motion and had no significant crepitance. The syndesmosis was stressed and was noted to be stable. The mortise was symmetrical and intact. There was a small posterior malleolus fracture which did not involve any appreciable articular surface and reduced well and thus was treated without fixation. The wounds were then thoroughly irrigated. Subcutaneous tissue was repaired over the implants utilizing 3-0 and 4-0 Vicryl. The skin was closed utilizing 3-0 and 4-0 nylon. Xeroform, 4 x 4's, soft roll, and a well-padded AO splint was applied. Patient was then awoken and transferred to postanesthesia care in stable condition. All sponge, sharp, and instrument counts were correct prior to closing the wounds.
--- NOTE | 2019-02-16 17:46 | ANES ---
Post Anesthesia Discharge - Transfer of Care Transfer of Care handoff given to nurse: Yes - Discharge from PACU Discharge from PACU when meets criteria: No - Comfortable in PACU.
--- NOTE | 2019-02-16 18:02 | ANES ---
Post Anesthesia Assessment - Vital Signs Vitals: Last Vital Signs Temp 37.0 C 02/16/19 17:55 Pulse 97 02/16/19 17:55 Resp 14 02/16/19 17:55 BP 145/57 02/16/19 17:55 Pulse Ox 96 02/16/19 17:55 Airway Patency: Normal - Mental Status Level Of Consciousness: Awake, Alert, Appropriate - Pain Level Pain Score: 0 - N/V Assessment Nausea/Vomiting Presence: None Dehydration:: No
[2019-02-16] MEDS: HYDROcodone/ACETAMINOPHEN 1 EACH TABLET PO PRN (19:03)
[2019-02-16] MEDS: SENNOSIDES/DOCUSATE SODIUM 1 TAB TABLET PO SCH (20:29)
[2019-02-17] MEDS ORDERED: CLINDAMYCIN PHOSPHATE 900 MG in DEXTROSE 5 % IN WATER 100 ML IV SCH ×2 (03:33)
[2019-02-17] MEDS: HYDROcodone/ACETAMINOPHEN 1 EACH TABLET PO PRN ×3 (06:02→22:01)
[2019-02-17 06:03] LABS: Albumin * 2.7 gm/dl (3.4-5.0); Anion Gap 11.1 mmol/L (6.8-13.8); Bilirubin, Total 0.7 mg/dL (0.0-1.1); Ca. Corrected For Albumin 9.1 mg/dL (8.4-10.2); Calcium * 8.4 mg/dL (7.9-10.9); Carbon Dioxide 29.4 mmol/L (24-32.6); Potassium 3.5 mmol/L (3.4-4.6); Total Protein 5.5 gm/dL (6.2-8.2)
--- NOTE | 2019-02-17 08:04 | PN ---
Subjective - Date and Time Seen Date: 02/17/19 Time: 08:02 Subjective Narrative: Resting in bed. No events last night. No complaints is morning. Pain is controlled. Objective - Vitals Vitals: Last Vital Signs Temp 36.9 C 02/17/19 07:58 Pulse 81 02/17/19 07:58 Resp 16 02/17/19 07:58 BP 168/73 H 02/17/19 07:58 Pulse Ox 96 02/17/19 07:58 - Abnormal Lab Findings Abnormal Lab Findings: Abnormal Lab Results 02/17/19 Range/Units 05:20 Random Glucose 127 H (70-110) mg/dL ALT 12 L (19-67) U/L Total Protein 5.5 L (6.2-8.2) gm/dL Albumin 2.7 L (3.4-5.0) gm/dl - Exam Exam Narrative: Left lower extremity: Dressings intact, sensation intact light touch the toes. Able to move her toes. Brisk cap refill. Assessment/Plan - Problems/Diagnosis (1) Bimalleolar ankle fracture Problem: Acute Qualifiers: Encounter type: subsequent encounter Fracture type: closed Laterality: left Fracture healing: with routine healing Qualified Code(s): S82.842D - Displaced bimalleolar fracture of left lower leg, subsequent encounter for closed fracture with routine healing Narrative: She'll be nonweightbearing. Keep her splint clean and dry. She is okay to discharge to home today. I recommend that she continue a daily aspirin for 6 weeks. Ice and elevate. I'll see her back in 2 weeks. Discharged with oral pain medicines.
[2019-02-17] MEDS: METOPROLOL SUCCINATE 100 MG TABLET.SA PO SCH (09:23)
[2019-02-17] MEDS: ASPIRIN 325 MG TABLET.DR PO SCH (09:23)
--- NOTE | 2019-02-17 12:18 | DS ---
(1) Bimalleolar ankle fracture Problem: Resolved Qualifiers: Encounter type: subsequent encounter Fracture type: closed Laterality: left Fracture healing: with routine healing Qualified Code(s): S82.842D - Displaced bimalleolar fracture of left lower leg, subsequent encounter for closed fracture with routine healing (2) Hypertension Problem: Chronic Qualifiers: Hypertension type: essential hypertension Qualified Code(s): I10 - Essential (primary) hypertension (3) Diabetes mellitus type 2 in nonobese Problem: Chronic Description of Stay: 74-year-old female with a past medical history of diabetes mellitus type 2, hypertension, psoriasis, shingles, stroke presents status post fall. In the ER she was found to have a fracture of her left ankle. She underwent a left ankle ORIF on February 16, 2019. Postop she is doing well. She is having difficulty ambulating due to neuropathy of the right leg and nonweightbearing status of the left leg. She was supposed to be discharged home with home health care, but her family decided that she would not be safe at home and they would not be able to take care of her because she is only partial weightbearing on the right leg and nonweightbearing on the left leg. They would like her to go to a detention for rehab. She will be discharged today to a detention. Procedures Performed: see notes below List Procedures: Left ankle ORIF Results and Findings: Lab Pending Results 02/17/19 05:20: Sodium 139, Plasma Sodium 139, Potassium 3.5, Chloride 102, Carbon Dioxide 29.4, Anion Gap 11.1, BUN 8, Creatinine 0.73, Est GFR (Non-Af Amer) 83 D, BUN/Creatinine Ratio 11.0, Random Glucose 127 H, Calcium 8.4, Calcium Adj for Albumin 9.1, Total Bilirubin 0.7, AST 17, ALT 12 L, Alkaline Phosphatase 60, Total Protein 5.5 L, Albumin 2.7 L Discharge Location: [facility] Disposition: Intermediate Care Facility ICF Condition: Good Level of Care: ICF Discharge Activity: Non-Weight bearing - Of the left leg, Partial-Weight bearing - To right leg. Discharge Diet: General/regular food Skilled Nursing Therapy: Physicial Therapy, Occupation Therapy Referrals: Lima Kelly MD [Primary Care Provider] - Problem Oriented Discharge Instructions to Patient/Family: Ankle Fracture, [id number] Additional Patient Instructions (free text): PT/OT eval and treat under Part B. She'll be non-weight bearing. Keep her splint clean and dry. I recommend that she continue a daily aspirin for 6 weeks. Ice and elevate. I'll see her back in 2 weeks. Discharged with oral pain medicines. Follow up with Dr. Mandujano on March 02 at 1:30. Prescriptions (Any new or edited meds): HYDROcodone/ACETAMINOPHEN [[place] 5-325] 2 ea PO Q6H PRN #56 tab PRN Reason: Moderate Pain (Pain Scale 4-6) Mag Hydrox/Aluminum Hyd/Simeth [Maalox Plus Suspension] 30 ml PO Q6H PRN #7 udc PRN Reason: Indigestion Sennosides/Docusate Sodium [Senokot-S] 2 tab PO HS #60 tab Complete Home Medications List: Complete Home Medication List: metoprolol succinate ER 100 mg tablet,extended release 24 hr 100 mg PO DAILY #30 tab 06/30/18 metFORMIN HCL [Glucophage] 500 mg PO BIDWM 10/29/18 HYDROcodone/ACETAMINOPHEN [[place] 5-325] 2 ea PO Q6H PRN #56 tab 02/17/19 Mag Hydrox/Aluminum Hyd/Simeth [Maalox Plus Suspension] 30 ml PO Q6H PRN #7 udc 02/17/19 Sennosides/Docusate Sodium [Senokot-S] 2 tab PO HS #60 tab 02/17/19
[2019-02-17] MEDS ORDERED: CLINDAMYCIN PHOSPHATE 900 MG in DEXTROSE 5 % IN WATER 100 ML IV PRN ×2 (14:00)
--- NOTE | 2019-02-17 16:34 | PN ---
Subjective - Date and Time Seen Date: 02/17/19 Time: 10:45 Subjective Narrative: She states she feels well denies pain in her ankle. She says she only has pain when she moves her foot the wrong way. She is tolerating her diet. Objective - Review of Systems Generalized/Overall Review: Denies: Fever Respiratory: Denies: Shortness of Breath Cardiac: Denies: Chest Pain Abdominal: Denies: Abdominal Pain, Constipation Misc: All systems neg except as marked - Vitals Vitals: Last Vital Signs Temp 36.8 C 02/17/19 13:00 Pulse 88 02/17/19 13:00 Resp 18 02/17/19 13:00 BP 148/76 02/17/19 13:00 Pulse Ox 94 02/17/19 13:00 - Abnormal Lab Findings Abnormal Lab Findings: Abnormal Lab Results 02/17/19 Range/Units 05:20 Random Glucose 127 H (70-110) mg/dL ALT 12 L (19-67) U/L Total Protein 5.5 L (6.2-8.2) gm/dL Albumin 2.7 L (3.4-5.0) gm/dl - Exam Constitutional: Present: Alert, Cooperative, Well developed, Well nourished, No distress, Elderly ENT Exam: Present: hearing grossly normal Neck: Present: full range of motion. Absent: lymphadenopathy (R), lymphadenopathy (L) Respiratory: Present: lungs clear, No wheezing. Absent: crackles, rhonchi Cardiovascular/Chest: Present: normal peripheral pulses, regular rate, rhythm, no edema, no murmur Abdomen: Present: Normal bowel sounds, soft, nontender Extremity: Present: other - Left leg is wrapped in place from foot to below the knee Skin Exam: Present: normal color, warm/dry Neurologic: Present: normal mood/affect Appearance: Present: appropriate appearance Eye contact: Present: cooperative, good eye contact Thoughts: Present: normal mood /affect Assessment/Plan Plan Narrative: 74-year-old female with a past medical history of hypertension, diabetes presents status post fall. She was found to have a left ankle fracture. She underwent open reduction internal fixation of the left ankle on February 16, 2019. She was to be discharged today. She has been undergoing physical therapy and has been having difficulty with mobility. Per the physical therapy she is unable to weight-bear on the left leg and is only partial weightbearing on the right leg. Family does not feel comfortable taking her home because she does not have 24-hour help. They would like her to be discharged to a alf facility. She will remain inpatient and be discharged to the alf facility tomorrow. - Problems/Diagnosis (1) Bimalleolar ankle fracture Problem: Resolved Qualifiers: Encounter type: subsequent encounter Fracture type: closed Laterality: left Fracture healing: with routine healing Qualified Code(s): S82.842D - Displaced bimalleolar fracture of left lower leg, subsequent encounter for closed fracture with routine healing (2) Hypertension Problem: Chronic Qualifiers: Hypertension type: essential hypertension Qualified Code(s): I10 - Essential (primary) hypertension (3) Diabetes mellitus type 2 in nonobese Problem: Chronic
[2019-02-17] MEDS: SENNOSIDES/DOCUSATE SODIUM 1 TAB TABLET PO SCH (21:47)
[2019-02-18] MEDS: ASPIRIN 325 MG TABLET.DR PO SCH (08:12)
[2019-02-18] MEDS: METOPROLOL SUCCINATE 100 MG TABLET.SA PO SCH (08:12)
[2019-02-18] MEDS: HYDROcodone/ACETAMINOPHEN 1 EACH TABLET PO PRN (13:23)
[2019-02-18 14:51] VITALS: BP 166/69
== END 2019-02-18 14:51 ==
LOC: MS 22:20 → ER 22:20 → MS 02-16 02:25
PROVIDERS: ADMIT Internal Medicine; ATTEND Internal Medicine
CPT/HCPCS: 36415; 73562; 73600; 73610; 80053; 90686; 96365; 96366; 96367; 96375; 97162; 97165; 97530; 99285; G0008; G0378; J2405